=== PATIENT | female | born 1975 | race Two or more races ===

== ENCOUNTER 2018-03-04 14:19 | Emergency (ER) | payer OTHER ==
[~2018-03-04] VITALS: Ht 149.9 cm; Wt 52.2 kg
[2018-03-04 14:24] VITALS: Ht 149.9 cm; Wt 52.2 kg
[2018-03-04 15:29] LABS: BASOPHIL % 0.6 % (0-2); PLATELET COUNT 257 x10^3mcL (130-400)
[2018-03-04 15:33] LABS: RED CELL DISTRIBUTION WIDTH 14.6 % (11.5-14.5)
[2018-03-04 15:40] LABS: CALCIUM 8.2 mg/dL (8.5-10.1); CHLORIDE SERUM 110 mmol/L (98-107); CREATININE SERUM 0.7 mg/dL (0.6-1.0); GFR1 > 60 mL/min; GLUCOSE SERUM 82 mg/dL (74-106); POTASSIUM SERUM 3.4 mmol/L (3.5-5.1); SODIUM SERUM 139 mmol/L (136-145)
[2018-03-04 15:45] LABS: ALBUMIN 3.5 g/dL (3.4-5.0); ALKALINE PHOSPHATASE 89 U/L (46-116); ALT/SGPT 26 U/L (14-59); AMYLASE 71 U/L (25-115); AST/SGOT 23 U/L (15-37); BILIRUBIN TOTAL 0.3 mg/dL (0.20-1.00); LIPASE 217 IU/L (73-393); TOTAL PROTEIN, SERUM 6.9 g/dL (6.4-8.2)
[2018-03-04 18:48] VITALS: BP 108/73
== END 2018-03-04 18:48 | disposition home or self-care (01) ==
LOC: ED 14:19
PROVIDERS: Emergency Medicine
DX: K59.00 Constipation, unspecified (principal); Z90.49 Acquired absence of other specified parts of digestive tract; Z88.6 Allergy status to analgesic agent
CPT/HCPCS: J2060; J2270; J7030